=== PATIENT | female | born 1990 | race Two or more races ===

== ENCOUNTER 2018-10-10 07:00 | Inpatient (IN) | payer BC ==
[~2018-10-10] VITALS: Ht 160 cm; Wt 72.0 kg
[2018-10-10 08:17] VITALS: Ht 160 cm; Wt 72.0 kg
[2018-10-10 08:23] VITALS: BP 128/72; PULSE 72; RESP 18
[2018-10-10] MEDS ORDERED: METHYLERGONOVINE 0.2 MG INJ IM PRN ×2 (08:30→22:00)
[2018-10-10] MEDS ORDERED: BUTORPHANOL 2 MG INJ IV PRN (08:30)
[2018-10-10] MEDS ORDERED: OXYTOCIN 30 UNITS/LR 500 ML IV SCH ×4 (08:30→21:46)
[2018-10-10] MEDS ORDERED: MISOPROSTOL 200 MCG TAB PR PRN ×2 (08:30→22:00)
[2018-10-10] MEDS ORDERED: LIDOCAINE 1% (MPF) 30 ML INJ INJ PRN (08:30)
[2018-10-10] MEDS ORDERED: OXYTOCIN 30 UNITS/LR 500 ML IV PRN ×2 (08:30→22:00)
[2018-10-10] MEDS ORDERED: CARBOPROST 250 MCG INJ IM PRN ×2 (08:30→22:00)
[2018-10-10] MEDS: LACTATED RINGER'S 1,000 ML IV SCH ×3 (08:48→20:32)
--- NOTE | 2018-10-10 12:49 | HP ---
Date/Time of Note Date/Time of Note DATE: 10/10/18 TIME: 12:47 OB - History Hx of Present Free Text/Dictation 28 years old [id number] at 40 weeks fir IOL GBS negative FH reasurign VSS AROM clear cervix 1.5/80%-2 Plan routine intrapartum care Pit Epidural Chief Complaint: as above Estimated Due Date: Oct 10, 2018 : 2 Para: 1 Care: Good Care Ultrasounds: Normal mid trimester US Past Family/Social History * Past Medical, Surgical, Family and Obstetric Histories reviewed from chart. OB Admission Exam Vital Signs Vital Signs Vital Signs Date Temp Pulse Resp B/P (MAP) Pulse Ox O2 O2 Flow FiO2 Time Delivery Rate 10/10/18 98.0 72 18 128/72 08:23 (90) Last 72 hours Lab Results CBC & BMP 10/10/18 08:47 ASHLEY LEWIS M.D. Oct 10, 2018 12:49
--- NOTE | 2018-10-10 13:23 | PREAC ---
Date/Time of Note Date/Time of Note DATE: 10/10/18 TIME: 13:22 Anesthesia Eval and Record Evaluation Time Pre-Procedure Interview DATE: 10/10/18 TIME: 13:22 Age 28 Sex female NPO: 8 hrs Preoperative diagnosis IUP Planned procedure L&D Epidural Past Medical History Past Medical History: Includes GI: Obesity : : Surgery & Anesthesia Issues No known issue Meds Anticoagulation: No Beta Vu within 24 hr: No Reason Beta Vu not given: Pt. not on B-Vu Current Medications Lactated Ringer's 1,000 ml @ 125 mls/hr Q8H IV Last administered on 10/10/18at 08:48; Admin Dose 125 MLS/HR; Start 10/10/18 at 08:24 Butorphanol Tartrate (Stadol) 2 mg Q2H PRN IV .PAIN SCALE 6-10; Start 10/10/18 at 08:30 Lidocaine (Xylocaine 1% (Mpf)) 30 ml ONCE PRN INJ .EPISIOTOMY; Start 10/10/18 at 08:30 Oxytocin/Lactated Ringer's 500 ml @ 500 mls/hr ONCE POST IV ; Start 10/10/18 at 08:30 Oxytocin/Lactated Ringer's 500 ml @ 125 mls/hr POST IV ; Start 10/10/18 at 08:30 Oxytocin/Lactated Ringer's 500 ml @ 0 mls/hr ONCE PRN IV .VAGINAL BLEEDING; Start 10/10/18 at 08:30 Methylergonovine Maleate (Methergine) 0.2 mg ONCE PRN IM .VAGINAL BLEEDING; Start 10/10/18 at 08:30 Carboprost Tromethamine (Hemabate) 250 mcg ONCE PRN IM .VAGINAL BLEEDING; Start 10/10/18 at 08:30 Misoprostol (Cytotec) 1,000 mcg ONCE PRN MS .VAGINAL BLEEDING; Start 10/10/18 at 08:30 Oxytocin/Lactated Ringer's 500 ml @ 0 mls/hr FOR INDUCTION IV Last administered on 10/10/18at 08:49; Admin Dose 4 MLS/HR; Start 10/10/18 at 08:30 Meds reviewed: Yes Allergies Coded Allergies: No Known Allergy (Unverified , 10/10/18) Allergies Reviewed: Yes Labs/Studies Labs Reviewed: Reviewed by anesthesiologist Result Diagram: 10/10/18 0847 Laboratory Tests 10/10/18 08:47 Blood Bank Test 10/10/18 08:47 Antibody Screen NEGATIVE Blood Type A POSITIVE Rh Immune Globulin Candidate NO test: Positive Studies: ECG Pre-procedure Exam Last vitals Vital Signs Date Temp Pulse Resp B/P (MAP) Pulse Ox O2 O2 Flow FiO2 Time Delivery Rate 10/10/18 98.0 72 18 128/72 08:23 (90) Airway: Adequate mouth opening, Adequate thyromental dist Mallampati: Mallampati II Teeth: Normal Lung: Normal Heart: Normal ASA Physical Status ASA physical status: 2 Emergency: None Planned Anesthetic Neuraxial: Epidural Planned Pain Management Epidural, Parenteral pain med Pre-operative Attestations Prior to commencing anesthesia and surgery, the patient was re-evaluated, there was verification of: *The patient's identity *The results of appropriate recent lab work and preoperative vital signs *The above evaluation not changing prior to induction *Anesthetic plan, risk benefits, alternative and complications discussed with patient/family; questions answered; patient/family understands, accepts and wishes to proceed. LISSETTE MARTINEZ MD Oct 10, 2018 13:23
[2018-10-10] MEDS ORDERED: FENTAnyl 2MCG/ML-ROPIV 0.2% 100 ML ONE (13:25)
[2018-10-10] MEDS ORDERED: NALOXONE (0.4 MG/ML) INJ IV PRN (13:30)
[2018-10-10] MEDS ORDERED: FENTAnyl 2MCG/ML-ROPIV 0.2% 100 ML BAG EPI SCH (13:30)
[2018-10-10] MEDS ORDERED: DIPHENHYDRAMINE 50 MG INJ IV PRN (13:30)
[2018-10-10] MEDS ORDERED: ONDANSETRON 4 MG INJ IV PRN (13:30)
--- NOTE | 2018-10-10 21:46 | LDN ---
Date/Time of Note Date/Time of Note DATE: 10/10/18 TIME: 21:44 Delivery Summary pt fully dilated pushed to deliver a viable baby boy 9/9. Nose and mouth were suctioned cord clamped and cut. handd to patient Cord blood collected. placenta delivered spontanously. Pit started 1 degree perineal LAC repaired qith 2-0 chromic EBL 300 cc Weeks of Gestation 40 Placenta Delivered: Spontaneously Meconium: none Episiotomy: No (Please specify) Perineal laceration: 1 Anesthesia type: Epidural Estimated blood loss: 300 Sponge & Needle done & correct: Yes All needle counts correct: Yes ASHLEY LEWIS M.D. Oct 10, 2018 21:46
[2018-10-10] MEDS ORDERED: HYDROCODONE/APAP (5/325) TAB PO PRN ×2 (22:00)
[2018-10-10] MEDS ORDERED: NACL 0.9% 3 ML SYG IV SCH (22:00)
--- NOTE | 2018-10-10 22:00 | PAC ---
Date/Time of Note Date/Time of Note DATE: 10/10/18 TIME: 21:59 Post-Anesthesia Notes Post-Anesthesia Note Last documented vital signs Vital Signs Date Temp Pulse Resp B/P (MAP) Pulse Ox O2 O2 Flow FiO2 Time Delivery Rate 10/10/18 98.0 72 18 128/72 08:23 (90) Activity: WNL Respiratory function: WNL Cardiovascular function: WNL Mental status: Baseline Pain reasonably controlled: Yes Hydration appropriate: Yes Nausea/Vomiting absent: Yes Comments BP:112/56, P:88, Spo2:100%, T:98,9 LISSETTE MARTINEZ MD Oct 10, 2018 22:00
[2018-10-11] VITALS (7 sets, daily range): BP systolic 104–140; BP diastolic 64–72; PULSE 68–85; RESP 18–20
[2018-10-11] MEDS: IBUPROFEN 600 MG TAB PO SCH ×4 (04:17→23:47)
[2018-10-11] MEDS: SENNA/DOCUSATE NA (8.6MG/50MG) TAB PO SCH ×2 (09:26→20:35)
[2018-10-11] MEDS: WITCH HAZEL/GLYCERIN PAD PR PRN (11:58)
[2018-10-11] MEDS ORDERED: LANOLIN HPA 1 PKT TOP PRN (12:00)
[2018-10-11] MEDS: LACTATED RINGER'S 1,000 ML IV SCH ×3 (12:03→21:20)
--- NOTE | 2018-10-11 12:12 | DS ---
Date/Time of Note Date/Time of Note DATE: 10/11/18 TIME: 12:11 Discharge Summary Admission/Discharge Info Admit Date/Time Oct 10, 2018 at 07:17 Discharge Date/Time 10/12/18 Discharge Diagnosis Patient Condition: Good Procedures Hx of Present Illness as above , PPD #1 ot is doing well VSS CBC Hospital Course 10/10/18 admited for IOL Follow-up Plan 6 weeks PP Primary Care Provider Ashley Lewis M.D. Pending Labs Laboratory Tests Test 10/11/18 07:05 10/11/18 07:59 Lab Scanned Report REFERENCE LAB [id number] White Blood Count 10.7 10^3/ul (4.8-10.8) Red Blood Count 4.07 10^6/ul (4.20-5.40) Hemoglobin 10.5 g/dl (12.0-16.0) Hematocrit 32.5 % (37.0-47.0) Mean Corpuscular Volume 79.9 fl (82.0-101.0) Mean Corpuscular Hemoglobin 25.8 pg (29.0-33.0) Mean Corpuscular 32.3 g/dl (32.0-37.0) Hemoglobin Concent Red Cell Distribution Width 14.6 % (11.5-14.5) Platelet Count 138 10^3/UL (140-415) Mean Platelet Volume 10.9 fl (7.4-10.4) Immature Granulocytes % 0.600 % (0.001-0.429) Neutrophils % 77.6 % (39.0-77.0) Lymphocytes % 13.4 % (15.0-51.0) Monocytes % 7.7 % (0.0-11.0) Eosinophils % 0.3 % (0.0-7.0) Basophils % 0.4 % (0.0-2.0) Nucleated Red Blood Cells % 0.0 /100WBC (0.0-0.0) Immature Granulocytes # 0.060 10^3/ul (0.0-0.031) Neutrophils # 8.3 10^3/ul (1.6-7.5) Lymphocytes # 1.4 10^3/ul (0.8-2.9) Monocytes # 0.8 10^3/ul (0.3-0.9) Eosinophils # 0.0 10^3/ul (0.0-0.5) Basophils # 0.0 10^3/ul (0.0-0.1) Nucleated Red Blood Cells # 0.0 10^3/ul (0.0-0.0) ASHLEY LEWIS M.D. Oct 11, 2018 12:12
[2018-10-11] MEDS: BENZOCAINE 20% 56 ML SPRAY TOP PRN (14:29)
[2018-10-12] MEDS: LACTATED RINGER'S 1,000 ML IV SCH ×2 (00:24→08:24)
[2018-10-12 04:00] VITALS: BP 108/54; PULSE 72; RESP 18
[2018-10-12] MEDS: IBUPROFEN 600 MG TAB PO SCH ×3 (05:56→12:14)
[2018-10-12 08:50] VITALS: BP 122/71; PULSE 82; RESP 17
[2018-10-12] MEDS: SENNA/DOCUSATE NA (8.6MG/50MG) TAB PO SCH (09:04)
[2018-10-12] MEDS: BENZOCAINE 20% 56 ML SPRAY TOP PRN (12:14)
[2018-10-12] MEDS: WITCH HAZEL/GLYCERIN PAD PR PRN (12:14)
--- NOTE | 2018-10-13 14:42 | DELSUM ---
Delivery Summary A-C Datetime Report Generated by CPN: 10/13/2018 14:42 DELIVERY PERSONNEL Disk Sander: Shell, Chela MATERNAL INFORMATION Delivery Anesthesia: Epidural Medications in Delivery: pitocin Delivery QBL (ml): 300 Placenta Cultured: No Maternal Complications: None LABOR SUMMARY EDC: 10/10/2018 00:00 No. Babies in Womb: 1 Attempted: No Labor Anesthesia: Epidural LABOR INFORMATION Reason for Induction: Other Reason for Induction- Other: 40 weeks Onset of Labor: 10/10/2018 09:30 Complete Dilatation: 10/10/2018 21:05 Group B Beta Strep: Negative Antibiotics # of Doses: NONE Steroids Given: None Reason Steroids Not Administered: Not Applicable MEMBRANES Membranes Rupture Method: Artificial Rupture of Membranes: 10/10/2018 12:42 Length of Rupture (hr): 8.78 Amniotic Fluid Color: Clear Amniotic Fluid Amount: Copious Amniotic Fluid Odor: None STAGES OF LABOR Stage 1 hr: 11 Stage 1 min: 35 Stage 2 hr: 0 Stage 2 min: 24 Stage 3 hr: 0 Stage 3 min: -24 Total Time in Labor hr: 11 Total Time in Labor min: 35 VAGINAL DELIVERY Laceration Extension: First Degree Laceration Type: Perineal Initial Vag Sponge Count: 10 Final Vag Sponge Count: 10 Initial Vag Sharps Count: 1 Final Vag Sharps Count: 5 Sponge Count Correct: Yes Sharps Count Correct: Yes BABY A INFORMATION Delivery Date/Time: 10/10/2018 21:29 Method of Delivery: Vaginal Born in Route : No : N/A Forceps: N/A Vacuum Extraction: N/A Shoulder Dystocia : No SHOULDER DYSTOCIA BABY A Delivery Date/Time: 10/10/2018 21:29 PRESENTATION/POSITION BABY A Presentation: Cephalic Cephalic Presentation: Vertex Vertex Position: Left Occipital Anterior Breech Presentation: N/A PLACENTA INFORMATION BABY A Placenta Delivery Time : 10/10/2018 21:05 Placenta Method of Delivery: Spontaneous Placenta Status: Delivered SCORES BABY A Heart Rate 1 min: >100 bpm Resp Effort 1 min: Good Cry Reflex Irritability 1 min: Cough/Sneeze/Pulls Away Muscle Tone 1 min: Active Motion Color 1 min: Body Wells, Extremit Blue Resuscitation Effort 1 min: Tactile Stimulation SCORE 1 MIN: 9 Heart Rate 5 min: >100 bpm Resp Effort 5 min: Good Cry Reflex Irritability 5 min: Cough/Sneeze/Pulls Away Muscle Tone 5 min: Active Motion Color 5 min: Body Wells, Extremit Blue Resuscitation Effort 5 min: Tactile Stimulation SCORE 5 MIN: 9 INFANT INFORMATION BABY A Gestational Age at Delivery: 40.0 Gestational Status: Full Term- 39- 40.6 Weeks Infant Outcome : Liveborn, with signs of life Infant Condition : Stable Sex: Male IDENTIFICATION/MEDS BABY A ID Band Number: [id number] ID Band Location: Right Leg; Left Arm Sensor Applied: Yes Sensor Number: [id number] Sensor Location : Cord Clamp Vitamin K Given : Not Given Erythromycin Given: Not Given WEIGHT/LENGTH BABY A Birthweight (gm): 3410 Infant Weight (lb): 7 Weight (oz): 8 Length (in): 19.75 Length (cm): 50.17 CORD INFORMATION BABY A No. Cord Vessels: 3 Nuchal Cord : N/A Cord Blood Taken: Yes Suction: Mouth; Nose
== END 2018-10-12 13:35 | disposition home or self-care (01) | DRG 807 ==
LOC: L-D 07:17 → PP1 10-11 00:03
PROVIDERS: ADMIT Obstetrics & Gynecology; ATTEND Obstetrics & Gynecology
PROC: 10907ZC Drainage of Amniotic Fluid, Therapeutic from Products of Conception, Via Natural or Artificial Opening (ICD-10-PCS; 2018-10-10)
PROC: 0HQ9XZZ Repair Perineum Skin, External Approach (ICD-10-PCS; 2018-10-10)
PROC: 10E0XZZ Delivery of Products of Conception, External Approach (ICD-10-PCS; principal; 2018-10-10 07:00)
DX: O99.214 Obesity complicating childbirth (principal); Z37.0 Single live birth; E66.9 Obesity, unspecified; O70.0 First degree perineal laceration during delivery; Z3A.40 40 weeks gestation of pregnancy
CPT/HCPCS: 62322; 85025; 85610; 85730; 86592; 86850; 86900; 86901; 87340; J2590; J3010; J7120